=== PATIENT | male | born 1940 | race Caucasian/White ===

== ENCOUNTER → 2021-09-18 10:12 | Outpatient (REF) | payer MEDICARE, SELFPAY ==
--- NOTE | 2021-09-18 10:29 | ECG_ITS ---
Test Reason : type II dm, htn Blood Pressure : / mmHG Vent. Rate : 072 BPM Atrial Rate : 000 BPM P-R Int : 000 ms QRS Dur : 126 ms QT Int : 388 ms P-R-T Axes : 000 -43 -23 degrees QTc Int : 424 ms Atrial fibrillation with controlled ventricular rate Left axis deviation Non-specific intra-ventricular conduction block Nonspecific T wave abnormality Abnormal ECG No previous ECGs available Referred By: Radha Pierce Electronically Signed By:SKYLER KHANNA
== END ==
LOC: HO.CARD 10:12
PROVIDERS: PCP Family Medicine; Visit Provider Family Medicine
DX: E11.9 Type 2 diabetes mellitus without complications (principal); I10 Essential (primary) hypertension
CPT/HCPCS: 93005

== ENCOUNTER 2025-06-11 16:10 | Emergency (ER) | payer MEDICARE, SELFPAY ==
--- OUTSIDE RECORDS SUMMARY | 2025-06-05 20:00 | XMS_ITS | Clinical Summary ---
Author Organization Unknown Care Team Providers Care Environmental Health And Safety Leader Name Role Phone ILENE ALFREDO MD, JOSE Unavailable U mikey FOX RN, SUYAPA Unavailable Unavailable MABEL CRUZ LPN, BERE Unavailable Sofie LOMBARDI RN, KIRK Unavailable Unavailable Payers Payer Name Policy Type Policy Number Effective Date Expira tion Date [facility] [employer] - NON-BUNDLED AUTH [id number] Problems Condition Name Condition Details Condition Category Status Onset Date Resolution Date Last Treatment Date Treating Clinician Comments HYP HRT AND CHR KDNY DIS W HRT FAIL AND STG 1-4/UNSP CHR KDNY Active 09-27 00:00: 00 UNSPECIFIED SYSTOLIC (CONGESTIVE) HEART FAILURE Active 09-27 00:00: 00 TYPE 2 DIABETES MELLITUS W DIABETIC CHRONIC KIDNEY DISEASE Active 09-27 00:00: 00 CHRONIC KIDNEY DISEASE, STAGE 4 (SEVERE) Active 09-27 00:00: 00 PAROXYSMAL ATRIAL FIBRILLATION Active 09-27 00:00: 00 TYPE 2 DIABETES MELLITUS WITH DIABETIC NEUROPATHY, UNSP Active 09-27 00:00: 00 FDC (CURRENT) USE OF INSULIN Active 09-27 00:00: 00 ATHSCL HEART DISEASE OF [place] CORONARY ARTERY W/O ANG PCTRS Active 09-27 00:00: 00 OLD MYOCARDIAL INFARCTION Active 09-27 00:00: 00 PURE HYPERCHOLEST EROLEMIA, UNSPECIFIED Active 09-27 00:00: 00 BENIGN PROSTATIC HYPERPLASIA WITH LOWER URINARY TRACT SYMP Active 09-27 00:00: 00 OTHER RETENTION OF URINE Active 09-27 00:00: 00 OBESITY, UNSPECIFIED Active 09-27 00:00: 00 BODY MASS INDEX [BMI] 24.0-24.9, ADULT Active 09-27 00:00: 00 PRESENCE OF CORONARY ANGIOPLASTY IMPLANT AND GRAFT Active 09-27 00:00: 00 PERSONAL HISTORY OF NICOTINE DEPENDENCE Active 09-27 00:00: 00 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 Ordering Clinician Indication Dosage Frequency Signature (SIG) Comments Components amlodipine 5 mg tablet 06-12 00:00: 00 Yes [id number] 1 tablet DAILY 1 tablet DAILY (route: oral) Med Classific ation: Cardiovas cular Therapy Agents atorvastati n 40 mg tablet 06-12 00:00: 00 Yes [id number] 1 tablet BEDTIME 1 tablet BEDTIME (route: oral) Med Classific ation: Cardiovas cular Therapy Agents Eliquis 2.5 mg tablet 06-12 00:00: 00 Yes [id number] 1 tablet 2 TIMES DAILY 1 tablet 2 TIMES DAILY (route: oral) Med Classific ation: Hematolog ical Agents Lantus Solostar U-100 Insulin 100 unit/mL (3 mL) subcutaneou s pen 06-12 00:00: 00 Yes [id number] 28 unit BEDTIME 28 unit BEDTIME (route: subcutaneo us) Med Classific ation: Endocrine Macrobid 100 mg capsule 06-06 00:00: 00 06-13 23:59 :00 No [id number] 1 capsule 2 TIMES DAILY 1 capsule 2 TIMES DAILY (route: oral) Med Classific ation: Genitouri nary Therapy metoprolol succinate ER 100 mg tablet,exte nded release 24 hr 06-12 00:00: 00 Yes [id number] 100 mg DAILY 100 mg DAILY (route: oral) Med Classific ation: Cardiovas cular Therapy Agents Plavix 75 mg tablet 16 00:00: 00 Yes [id number] 1 tablet DAILY 1 tablet DAILY (route: oral) Med Classific ation: Hematolog ical Agents tamsulosin 0.4 mg capsule 16 00:00: 00 Yes [id number] 1 capsule BEDTIME 1 capsule BEDTIME (route: oral) Med Classific ation: Genitouri nary Therapy losartan 50 mg tablet 12-09 00:00: 00 Yes [id number] 1 tablet DAILY 1 tablet DAILY (route: oral) Med Classific ation: Cardiovas cular Therapy Agents Immunizations Ordered Immunization Name Filled Immunization Name Date Status Comments Refusal Reason INFLUENZA, TIV (INACTIVATED) 2023-06-24 00:00:00 Vital Signs Vital Name Observation Time Observation Value Commen ts Temperature 2025-06-05 08:26:00.000 98 [degF] Temperature 2025-05-22 12:21:00.000 97 [degF] Temperature 2025-04-24 12:16:00.000 97.8 [degF] Temperature 2025-04-10 19:12:00.000 97 [degF] Pulse 2025-06-05 08:26:00.000 70 /min Pulse 2025-05-22 12:21:00.000 74 /min Pulse 2025-04-24 12:16:00.000 66 /min Pulse 2025-04-10 19:12:00.000 70 /min O2 Saturation (%) 2025-06-05 08:26:00.000 97 % O2 Saturation (%) 2025-05-22 12:21:00.000 97 % O2 Saturation (%) 2025-04-24 12:16:00.000 98 % O2 Saturation (%) 2025-04-10 19:12:00.000 97 % Respirations 2025-06-05 08:26:00.000 18 /min Respirations 2025-05-22 12:21:00.000 18 /min Respirations 2025-04-10 19:12:00.000 18 /min Weight (lbs) 2025-06-05 08:26:00.000 184 [lb_av] Weight (lbs) 2025-05-22 12:21:00.000 184 [lb_av] Weight (lbs) 2025-04-24 12:16:00.000 183 [lb_av] Weight (lbs) 2025-04-10 19:12:00.000 186 [lb_av] Systolic Blood Pressure 2025-06-05 08:26:00.000 122 mm [Hg] Systolic Blood Pressure 2025-05-22 12:21:00.000 130 mm [Hg] Systolic Blood Pressure 2025-04-24 12:16:00.000 126 mm [Hg] Systolic Blood Pressure 2025-04-10 19:12:00.000 128 mm [Hg] Diastolic Blood Pressure 2025-06-05 08:26:00.000 98 mm [Hg] Diastolic Blood Pressure 2025-05-22 12:21:00.000 72 mm [Hg] Diastolic Blood Pressure 2025-04-24 12:16:00.000 72 mm [Hg] Diastolic Blood Pressure 2025-04-10 19:12:00.000 74 mm [Hg] Plan of Treatment Planned Activity Planned Date Details Comments Future Scheduled Test SKILLED NU RSE TO EVALUATE PATIENT, IDENTIFY PRIMARY AND CO-MORBID CONDITIONS CODED PER CODING GUIDELINES, AND DEVELOP PATIENT SPECIFIC PLAN OF CARE THAT INCLUDES PATIENT GOAL FOR HOME HEALTH. [code = SKILLED NURSE TO EVALUATE PATIENT, IDENTIFY PRIMARY AND CO-MORBID CONDITIONS CODED PER CODING GUIDELINES, AND DEVELOP PATIENT SPECIFIC PLAN OF CARE THAT INCLUDES PATIENT GOAL FOR HOME HEALTH.] Future Scheduled Test SKILLED NU RSE FOR O/A, TEACHING AND SELF-MANAGEMENT RELATED TO HEART FAILURE. INSTRUCT PATIENT/CAREGIVER ON SIGNS AND SYMPTOMS OF EXACERBATION TO REPORT AND IMPORTANCE OF OBTAINING AND RECORDING DAILY WEIGHT AND/OR MEASUREMENTS. SN OR TRAINED PATIENT/CAREGIVER TO OBTAIN WEIGHT DAILY AND WEIGHT GAIN OF 2 LBS OVERNIGHT OR 5 LBS IN 1 WEEK TO BE REPORTED TO PHYSICIAN/PROVIDER. IF UNABLE TO WEIGH PATIENT, SN OR TRAINED PATIENT/CAREGIVER TO OBTAIN MEASUREMENT OF THIGH IN CM DAILY AND REPORT AN INCREASE OF 2 CM TO PHYSICIAN/PROVIDER. [code = SKILLED NURSE FOR O/A, TEACHING AND SELF-MANAGEMENT RELATED TO HEART FAILURE. INSTRUCT PATIENT/CAREGIVER ON SIGNS AND SYMPTOMS OF EXACERBATION TO REPORT AND IMPORTANCE OF OBTAINING AND RECORDING DAILY WEIGHT AND/OR MEASUREMENTS. SN OR TRAINED PATIENT/CAREGIVER TO OBTAIN WEIGHT DAILY AND WEIGHT GAIN OF 2 LBS OVERNIGHT OR 5 LBS IN 1 WEEK TO BE REPORTED TO PHYSICIAN/PROVIDER. IF UNABLE TO WEIGH PATIENT, SN OR TRAINED PATIENT/CAREGIVER TO OBTAIN MEASUREMENT OF THIGH IN CM DAILY AND REPORT AN INCREASE OF 2 CM TO PHYSICIAN/PROVIDER.] Future Scheduled Test SKILLED NU RSE FOR O/A AND TEACHING OF DIABETIC MANAGEMENT INCLUDING BLOOD SUGAR MONITORING/USE OF GLUCOMETER, DIABETIC DIET, LOWER EXTREMITY SKIN INSPECTION, PROPER SKIN/FOOT CARE, AND SIGNS AND SYMPTOMS HYPO/HYPERGLYCEMIA TO REPORT. [code = SKILLED NURSE FOR O/A AND TEACHING OF DIABETIC MANAGEMENT INCLUDING BLOOD SUGAR MONITORING/USE OF GLUCOMETER, DIABETIC DIET, LOWER EXTREMITY SKIN INSPECTION, PROPER SKIN/FOOT CARE, AND SIGNS AND SYMPTOMS HYPO/HYPERGLYCEMIA TO REPORT.] Future Scheduled Test SKILLED NU RSE TO OBTAIN BLOOD SUGAR PRN FOR SIGNS AND SYMPTOMS OF HYPO/HYPERGLYCEMIA. IF OBTAINED BY PATIENT/CAREGIVER PRIOR TO VISIT AND PATIENT IS NOT SYMPTOMATIC, SKILLED NURSE TO RECORD READING FROM PATIENT LOG. [code = SKILLED NURSE TO OBTAIN BLOOD SUGAR PRN FOR SIGNS AND SYMPTOMS OF HYPO/HYPERGLYCEMIA. IF OBTAINED BY PATIENT/CAREGIVER PRIOR TO VISIT AND PATIENT IS NOT SYMPTOMATIC, SKILLED NURSE TO RECORD READING FROM PATIENT LOG.] Future Scheduled Test SKILLED NU RSE TO REVIEW PATIENT MEDICATIONS (PRESCRIPTION/OTC). INSTRUCT PATIENT/CAREGIVER ON ALL MEDICATIONS INCLUDING PURPOSE, WHEN TO TAKE, IMPORTANCE OF MEDICATION ADHERENCE, MONITORING OF EFFECTIVENESS, ADVERSE DRUG REACTIONS, POSSIBLE SIDE EFFECTS, AND WHEN TO NOTIFY AGENCY OR PHYSICIAN/PROVIDER OF ANY CONCERNS. [code = SKILLED NURSE TO REVIEW PATIENT MEDICATIONS (PRESCRIPTION/OTC). INSTRUCT PATIENT/CAREGIVER ON ALL MEDICATIONS INCLUDING PURPOSE, WHEN TO TAKE, IMPORTANCE OF MEDICATION ADHERENCE, MONITORING OF EFFECTIVENESS, ADVERSE DRUG REACTIONS, POSSIBLE SIDE EFFECTS, AND WHEN TO NOTIFY AGENCY OR PHYSICIAN/PROVIDER OF ANY CONCERNS.] Future Scheduled Test PATIENT VYAS S A RISK OF HOSPITALIZATION AND ED USE. SKILLED NURSE TO ESTABLISH SUPPORT MEASURES TO MINIMIZE RISK OF HOSPITALIZATION AND ED USE, AND INSTRUCT PATIENT/CAREGIVER ON METHODS TO REDUCE AVOIDABLE HOSPITALIZATION AND ED USE. [code = PATIENT HAS A RISK OF HOSPITALIZATION AND ED USE. SKILLED NURSE TO ESTABLISH SUPPORT MEASURES TO MINIMIZE RISK OF HOSPITALIZATION AND ED USE, AND INSTRUCT PATIENT/CAREGIVER ON METHODS TO REDUCE AVOIDABLE HOSPITALIZATION AND ED USE.] Future Scheduled Test SKILLED NU RSE TO PROVIDE INSTRUCTION TO PATIENT/CAREGIVER RELATED TO DISCHARGE PLANNING. [code = SKILLED NURSE TO PROVIDE INSTRUCTION TO PATIENT/CAREGIVER RELATED TO DISCHARGE PLANNING.] Future Scheduled Test SKILLED NU RSE TO PERFORM ENVIRONMENTAL SAFETY RISK ASSESSMENT AND FALL RISK ASSESSMENT AND PROVIDE INSTRUCTION TO IMPLEMENT ENVIRONMENTAL SAFETY AND FALL PREVENTION STRATEGIES THROUGHOUT THE CERTIFICATION PERIOD. SKILLED NURSE WILL MAINTAIN SITUATIONAL AWARENESS AND WILL NOTIFY CLINICAL VIDEO GAME PRODUCER AND PHYSICIAN/PROVIDER WITH ANY CHANGE IN CONDITION. [code = SKILLED NURSE TO PERFORM ENVIRONMENTAL SAFETY RISK ASSESSMENT AND FALL RISK ASSESSMENT AND PROVIDE INSTRUCTION TO IMPLEMENT ENVIRONMENTAL SAFETY AND FALL PREVENTION STRATEGIES THROUGHOUT THE CERTIFICATION PERIOD. SKILLED NURSE WILL MAINTAIN SITUATIONAL AWARENESS AND WILL NOTIFY CLINICAL VIDEO GAME PRODUCER AND PHYSICIAN/PROVIDER WITH ANY CHANGE IN CONDITION.] Future Scheduled Test SKILLED NU RSE FOR OBSERVATION AND ASSESSMENT OF PATIENT S PAIN LEVEL AND EFFECTIVENESS OF PAIN MANAGEMENT REGIMEN. SKILLED NURSE TO INSTRUCT PATIENT/CAREGIVER REGARDING PHARMACOLOGIC AND NON-PHARMACOLOGIC PAIN CONTROL MEASURES. SKILLED NURSE TO REPORT TO PHYSICIAN IF PAIN LEVEL IS OUTSIDE OF ESTABLISHED PARAMETERS. [code = SKILLED NURSE FOR OBSERVATION AND ASSESSMENT OF PATIENT S PAIN LEVEL AND EFFECTIVENESS OF PAIN MANAGEMENT REGIMEN. SKILLED NURSE TO INSTRUCT PATIENT/CAREGIVER REGARDING PHARMACOLOGIC AND NON-PHARMACOLOGIC PAIN CONTROL MEASURES. SKILLED NURSE TO REPORT TO PHYSICIAN IF PAIN LEVEL IS OUTSIDE OF ESTABLISHED PARAMETERS.] Future Scheduled Test SKILLED NU RSE TO ASSESS PATIENT'S SKIN INTEGRITY AND INSTRUCT PATIENT/CAREGIVER ON MEASURES TO PREVENT PRESSURE ULCERS. [code = SKILLED NURSE TO ASSESS PATIENT'S SKIN INTEGRITY AND INSTRUCT PATIENT/CAREGIVER ON MEASURES TO PREVENT PRESSURE ULCERS.] Future Scheduled Test SKILLED NU RSE FOR INSTRUCTION/ REINFORCEMENT OF NEEDS RELATED TO NUTRITION/HYDRATION. [code = SKILLED NURSE FOR INSTRUCTION/ REINFORCEMENT OF NEEDS RELATED TO NUTRITION/HYDRATION.] Future Scheduled Test SKILLED NU RSE FOR O/A AND SKILLED TEACHING RELATED TO SIGNS AND SYMPTOMS OF INFECTION AND INFECTION CONTROL MEASURES. [code = SKILLED NURSE FOR O/A AND SKILLED TEACHING RELATED TO SIGNS AND SYMPTOMS OF INFECTION AND INFECTION CONTROL MEASURES.] Future Scheduled Test SKILLED NU RSE FOR O/A OF SELF-CARE DEFICITS AND TO PROVIDE TEACHING RELATED TO SAFE PROVISION OF ADLS. [code = SKILLED NURSE FOR O/A OF SELF-CARE DEFICITS AND TO PROVIDE TEACHING RELATED TO SAFE PROVISION OF ADLS.] Future Scheduled Test SKILLED NU RSE TO INSTRUCT PATIENT/CAREGIVER AND PERFORM CARE AND MANAGEMENT OF INDWELLING URINARY CATHETER. 16FR CATHETER WITH 10ML BALLOON VIA STERILE TECHNIQUE, CHANGE Q 4WKS AND PRN FOR LEAKING OR MALFUNCTIONING CATHETER. IRRIGATE URINARY CATHETER WITH 30-60CC NORMAL SALINE PRN BLOCKAGE/LEAKAGE, HEAVY SEDIMENT. 1 - 3 PRN PENITENTIARY VISITS FOR CATHETER CHANGE(S) AND/OR TROUBLESHOOTING. [code = SKILLED NURSE TO INSTRUCT PATIENT/CAREGIVER AND PERFORM CARE AND MANAGEMENT OF INDWELLING URINARY CATHETER. 16FR CATHETER WITH 10ML BALLOON VIA STERILE TECHNIQUE, CHANGE Q 4WKS AND PRN FOR LEAKING OR MALFUNCTIONING CATHETER. IRRIGATE URINARY CATHETER WITH 30-60CC NORMAL SALINE PRN BLOCKAGE/LEAKAGE, HEAVY SEDIMENT. 1 - 3 PRN PENITENTIARY VISITS FOR CATHETER CHANGE(S) AND/OR TROUBLESHOOTING.] Future Scheduled Test SKILLED NU RSE TO PROVIDE TEACHING ON SIGNS AND SYMPTOMS AND MANAGEMENT OF HYPERTENSION. [code = SKILLED NURSE TO PROVIDE TEACHING ON SIGNS AND SYMPTOMS AND MANAGEMENT OF HYPERTENSION.] Goal 2025-04-03 Patient Goal - TO FEEL WELL Goal 2025-06-05 Patient Goal - TO FEEL WELL Goal 2024-10-05 Patient Goal - DRIVE TO DUNK IN Goal 2024-12-04 Patient Goal - DRIVE TO DUNK IN Goal Patient Goal - TO FEEL WELL Goal 2025-02-05 Patient Goal - TO FEEL WELL Goal 2024-08-07 Patient Goal - DRIVE TO DUNK IN Goal Provider Goal - A PLAN OF CARE WILL BE ESTABLISHED THAT MEETS PATIENT'S PENITENTIARY NEEDS AND INCLUDES PATIENT GOAL FOR HOME HEALTH. Goal Provider Goal - PATIENT/CAREGIVER WILL VERBALIZE/DEMONSTRATE KNOWLEDGE AND MANAGEMENT OF HEART FAILURE DISEASE PROCESS BY END OF EPISODE. Goal Provider Goal - PATIENT/CAREGIVER WILL VERBALIZE/DEMONSTRATE KNOWLEDGE OF DIABETIC MANAGEMENT. CHANGES IN DIABETIC STATUS WILL BE IDENTIFIED AND REPORTED TO PHYSICIAN FOR PROMPT INTERVENTION THROUGHOUT THE CERTIFICATION PERIOD. Goal Provider Goal - BLOOD SUGAR READING WILL BE OBTAINED ORDERED THROUGHOUT CERTIFICATION PERIOD. Goal Provider Goal - PATIENT/CAREGIVER WILL VERBALIZE UNDERSTANDING OF EDUCATION PROVIDED ON MEDICATIONS BY THE END OF THE CERTIFICATION PERIOD. Goal Provider Goal - PATIENT WILL HAVE SUPPORT MEASURES ESTABLISHED TO PREVENT HOSPITALIZATION AND ED USE AND PATIENT/CAREGIVER WILL VERBALIZE/DEMONSTRATE METHODS TO REDUCE AVOIDABLE HOSPITALIZATION AND ED USE BY END OF EPISODE. Goal Provider Goal - PATIENT/CAREGIVER WILL VERBALIZE UNDERSTANDING OF DISCHARGE PLANNING INSTRUCTIONS BY DATE OF DISCHARGE. Goal Provider Goal - PATIENT/CAREGIVER WILL VERBALIZE/DEMONSTRATE EFFECTIVE ENVIRONMENTAL SAFETY AND FALL PREVENTION STRATEGIES, WILL REMAIN SAFE IN THE COMMUNITY, AND WILL BE FREE OF DANGER TO SELF AND OTHERS THROUGHOUT THE CERTIFICATION PERIOD. Goal Provider Goal - PATIENT/CAREGIVER WILL DEMONSTRATE UNDERSTANDING OF PHARMACOLOGIC AND NONPHARMACOLOGIC PAIN CONTROL MEASURES AND PATIENT WILL HAVE IMPROVEMENT IN PAIN INTERFERING WITH ACTIVITY EVIDENCED BY PAIN AT A LEVEL THAT IS ACCEPTABLE TO THE PATIENT AND PAIN LEVEL WITHIN ESTABLISHED PARAMETERS BY END OF CERTIFICATION PERIOD. Goal Provider Goal - PATIENT/CAREGIVER WILL VERBALIZE UNDERSTANDING OF PRESSURE ULCER PREVENTION BY END OF THE EPISODE. Goal Provider Goal - PATIENT/CAREGIVER WILL DEMONSTRATE ABILITY TO SELF MANAGE NEEDS RELATED TO NUTRITION/HYDRATION THROUGHOUT THE EPISODE. Goal Provider Goal - PATIENT/CAREGIVER WILL VERBALIZE/DEMONSTRATE UNDERSTANDING OF S/S OF INFECTION AND INFECTION CONTROL MEASURES. SIGNS AND SYMPTOMS OF INFECTION WILL BE IDENTIFIED AND PHYSICIAN NOTIFIED FOR PROMPT INTERVENTION THROUGHOUT THE CERTIFICATION PERIOD. Goal Provider Goal - PATIENT/CAREGIVER WILL VERBALIZE/DEMONSTRATE UNDERSTANDING OF SAFE PROVISION OF ADLS BY THE END OF THE CERTIFICATION PERIOD. Goal Provider Goal - PATIENT WILL VERBALIZE TOLERANCE OF CATHETER CHANGE AND KNOWLEDGE OF REQUIRED CARE TO MANAGE INDWELLING URINARY CATHETER WITHOUT COMPLICATIONS BY THE END OF THE CERTIFICATION PERIOD. Goal Provider Goal - PATIENT/CAREGIVER WILL VERBALIZE SIGNS AND SYMPTOMS OF HYPERTENSION AND WILL BE ABLE TO DEMONSTRATE ABILITY TO MANAGE EXACERBATION BY END OF THE EPISODE. Encounters Start Date/Time End Date/Time Encounter Type Admission Type Attending [facility] Care Department Encounter ID Discharge Date Discharge Status Discharge Condition Discharge Reason Percent Goals Met 2025-04-08 00:00:00 2025-06-06 00:00:00 Outpatient RECERTIFIC ATION SUYAPA FOX [facility] [id number] 17.86
[2025-06-11 16:15] VITALS: BP 212/92; PULSE 93; RESP 16; TEMP 37.3; O2SAT 96; BMI 29.5
--- NOTE | 2025-06-11 16:15 | ED_ITS ---
HPI - General Adult General Chief complaint: Urogenital-Male Stated complaint: catheter leaking Related Data Previous Rx's ?Medication ?Instructions ?Recorded cefuroxime axetil 500 mg tablet 500 mg PO Q12H #13 tab s 06/11/25 Allergies Allergy/AdvReac Type Severity Reaction Status Date / Time aspirin (From Percodan) Allergy Intermediate Hives Verified 06/11/25 20:05 oxycodone (From Percodan) Allergy Intermediate Hives Verified 06/11/25 20:05 [facility] Social History Social History Advance Directives: No Advance Directives Information Provided: Yes Physical Exam ED Vital Signs: BMI result Body Mass Index 29.5 Course Course Course Narrative: This is a rapid medical exam performed by Dima Alexandre NP: Additional HPI, ROS, PE not included below will be deferred to primary provider. Patient is an 85y/o M presenting to the ED with complaint of urine leaking from meatus around catheter since this afternoon. Catheter last changed around 3 weeks ago. Has had the catheter for a year and a half. Also reports decreased urine output in bag. Plan: UA Patient left the emergency department before myself or any of the other clinicians could review or explain physical exam findings, test results, need or lack there of for additional testing, treatment options, or a treatment plan. Medical Decision Making Lab Data Labs: Lab Results 06/11/25 Range/Units 16:30 Urine Color Yellow Urine Appearance Cloudy Urine pH 5.5 (5.0-9.0) Ur Specific [place] 1.010 (1.005-1.025) Urine Protein 30 (1+) H (Neg-Trace) mg/dL Urine Glucose (UA) Negative (Negative) mg/dL Urine Ketones Negative (Negative) mg/dL Urine Blood Small (1+) H (Negative) Urine Nitrite Negative (Negative) Ur Leukocyte Esterase Large (3+) H (Negative) Urine RBC 0-2 (0-2) /HPF Urine WBC >50 H (0-5) /HPF Urine WBC Clumps Present Ur Squamous Epith Cells 0-2 (0-2) /HPF Urine Bacteria 4+ (None Seen) Hyaline Casts 0-2 (0-2) /LPF Discharge Plan Discharge Clinical Impression: Leakage from urinary catheter Patient Disposition: Left W/O Completing Treatment Prescriptions: No Action cefuroxime axetil 500 mg tablet 500 mg PO Q12H Qty: 13 0RF Discharge Date/Time: 06/11/25 19:43
--- NOTE | 2025-06-11 16:21 | ECG_ITS ---
Test Reason : HYPRETENSIVE Blood Pressure : */* mmHG Vent. Rate : 95 BPM Atrial Rate : 95 BPM P-R Int : 214 ms QRS Dur : 126 ms QT Int : 374 ms P-R-T Axes : 56 -43 52 degrees QTcB Int : 469 ms Sinus rhythm with 1st degree A-V block with frequent , and consecutive Premature ventricular complexes and Premature atrial complexes Left axis deviation Non-specific intra-ventricular conduction block Minimal voltage criteria for LVH, may be normal variant ( Sixto product ) Abnormal ECG When compared with ECG of 18-Sep-2021 10:39, Sinus rhythm has replaced Atrial fibrillation T wave inversion no longer evident in Inferior leads Nonspecific T wave abnormality, improved in Lateral leads Referred By: Libia Alexandre Electronically Signed By: SKYLER KHANNA
[2025-06-11 16:46] LABS: Appearance Urine Cloudy; Glucose Urine UA Negative (Negative); PH 5.5 (5.0-9.0); Specific Gravity - Urine 1.010 (1.005-1.025); UMIC TRIGGER UACC YES
[2025-06-11 17:35] LABS: UACC Culture Trigger YES
--- OUTSIDE RECORDS SUMMARY | 2025-06-11 21:50 | XMS_ITS | Clinical Summary ---
Author Organization [facility] [place] [address] Care Team Providers Care Access Services Assistant Name Role Phone Unavailable Primary Care Provider Unavailabl e Social History Tobacco Use Types Packs/Day Years Used Date Smoking Tobacco: Never Assessed Sex and Gender Information Value Date Recorded Sex Assigned at Not on file Legal Sex Male 11:41 AM EDT Gender Identity Not on file Sexual Orientation Not on file Plan of Treatment Health Maintenance Due Date Last Done Comments DTaP,Tdap,and Td Vaccines (1 - Tdap) 1959 Pneumococcal Vaccine: 50+ Ye ars (1 of 1 - PCV) 01/17/1988 Zoster Vaccines (1 of 2) 01/17/1988 RSV Immunization Adult Patie nts (1 - 1-dose 75+ series) 2013 Cholesterol Screening (Lipid Panel) 07/22/2024 Falls Risk Assessment 07/22/2024 Social Influencers of Health Screening 07/22/2024 Depression Screening 09/27/2024 Hypertension/CHF/CAD Annual BMP Blood Test 03/30/2025 COVID-19 Vaccine ( - 2023-2 5 season) 2025 Influenza Vaccine (#1) 2025 HIB Vaccines Aged Out No longer eligi ble based on patient's age to complete this topic HPV Vaccines Aged Out No longer eligi ble based on patient's age to complete this topic Hepatitis A Vaccines Aged Out No long er eligible based on patient's age to complete this topic Hepatitis B Vaccines Aged Out No long er eligible based on patient's age to complete this topic IPV Vaccines Aged Out No longer eligi ble based on patient's age to complete this topic MMR Vaccines Aged Out No longer eligi ble based on patient's age to complete this topic Meningococcal ACWY Vaccine Aged Out N o longer eligible based on patient's age to complete this topic Meningococcal B Vaccine Aged Out No l onger eligible based on patient's age to complete this topic RSV Immunization Patients Un clarence 20 months Aged Out No longer eligible b ased on patient's age to complete this topic Varicella Vaccines Aged Out No longer eligible based on patient's age to complete this topic
--- OUTSIDE RECORDS SUMMARY | 2025-06-11 21:50 | XMS_ITS | Clinical Summary ---
Author Organization [facility] Address [address] [place] [address] Phone Care Team Providers Care Sales Clerk Name Role Phone Michelle Lucas MD Primary Care Provider [phone] Allergies Active Allergy Reactions Criticality Noted Date Comments Oxycodone-Acetaminophen 09/08/2021 Medications apixaban (Eliquis) 2.5 MG tablet Take 2.5 mg by mouth 2 (two) times a day Active insulin glargine (LANTUS) 100 UNIT/ML injection Inject 22 Units under the skin every night Active amLODIPine (NORVASC) 5 MG tablet Take 5 mg by mouth 04/18/2024 Active famotidine (PEPCID) 10 MG tablet Take 10 mg by mouth 03/13/2024 Active clopidogrel (PLAVIX) 75 MG tablet Take 75 mg by mouth 06/06/2024 Active losartan (COZAAR) 50 MG tablet Take 1 tablet (50 mg total) by mouth 1 (one) time each day 90 tablet 3 08/01/2024 5 Active Active Problems Problem Noted Date Diagnosed Date Essential (primary) hypertension 09/08/2021 Hyperlipidemia 09/08/2021 Old myocardial infarction 09/08/2021 Hernia hydrocele complex 09/08/2021 Chronic kidney disease 09/08/2021 Obesity 09/08/2021 Benign adenoma of prostate 09/08/2021 Coronary arteriosclerosis 09/08/2021 Family History Relation Status Comments Father Mother Social History Tobacco Use Types Packs/Day Years Used Date Smoking Tobacco: Never Smokeless Tobacco: Never Alcohol Use Standard Drinks/Week Comments Never 0 (1 standard drink = 0.6 oz pur e alcohol) Sex and Gender Information Value Date Recorded Sex Assigned at Not on file Legal Sex Male 9:32 AM EST Gender Identity Not on file Sexual Orientation Not on file Last Filed Vital Signs Vital Sign Reading Time Taken Comments Blood Pressure 138/89 08/01/2024 3:56 PM EST Pulse 87 08/01/2024 3:56 PM EST Temperature - - Respiratory Rate - - Oxygen Saturation 97% 08/01/2024 3:56 PM EST Inhaled Oxygen Concentration - - Weight 82.6 kg (182 lb) 08/01/2024 3:56 PM EST Height - - Body Mass Index - - Plan of Treatment Health Maintenance Due Date Last Done Comments Pneumococcal Vaccine: 50+ Years (1 of 2 - PCV) 1959 04/16/2011 Diabetes: Hemoglobin A1C 07/28/2024 Diabetes: Ophthalmology Exam 07/28/2024 Diabetes: Pedal Pulse Checked 07/28/2024 Diabetes: Sensory Foot Exam 07/28/2024 Diabetes: Visual Foot Exam 07/28/2024 Influenza Vaccine (#1) 2025 , 09/03/2022, 07/02/2021, Additional history exists Hepatitis B Vaccine Aged Out No longe r eligible based on patient's age to complete this topic Insurance [employer] Medicare [facility] 1,2,3 (VAC[facility]) [facility] Medicare [facility] 1,2,3 (VACCN) Care Teams Sales Clerk Relationship Specialty Start Date End Date Michelle Lucas MD [address] [place] [id number] PCP - General Internal Medicine 08/01/24
--- OUTSIDE RECORDS SUMMARY | 2025-06-11 21:50 | XMS_ITS ---
Author Name [facility] Organization Unknown Care Team Organization Name Specialty Phone Email Start Date End [facility]
== END 2025-06-11 19:43 | disposition left against medical advice (07) ==
LOC: HO.ED 19:42
PROVIDERS: Registered Nurse Emergency; Emergency Provider Emergency Medicine
DX: T83.038A Leakage of other urinary catheter, initial encounter (principal); Y73.8 Miscellaneous gastroenterology and urology devices associated with adverse incidents, not elsewhere classified; Y92.9 Unspecified place or not applicable; R94.31 Abnormal electrocardiogram [ECG] [EKG]; Z79.899 Other long term (current) drug therapy
CPT/HCPCS: 81001; 81003; 87086; 87088; 93005; 99283

== ENCOUNTER → 2025-06-11 16:21 | Outpatient (BNV) | payer MEDICARE, SELFPAY | PROVIDERS: Emergency Provider Emergency Medicine; Visit Provider Internal Medicine | DX: I44.0 Atrioventricular block, first degree (principal); I49.1 Atrial premature depolarization; I49.3 Ventricular premature depolarization; I45.4 Nonspecific intraventricular block | CPT/HCPCS: 93010 ==

== ENCOUNTER 2025-06-11 19:47 | Emergency (ER) | payer MEDICARE, SELFPAY ==
[2025-06-11 19:59] VITALS: BP 227/109; PULSE 97; O2SAT 95; BMI 29.9
[2025-06-11 20:20] VITALS: BP 211/95; PULSE 95; RESP 20; TEMP 36.8; O2SAT 97
[2025-06-11 21:07] LABS: MANUAL DIFF FLAG NO
[2025-06-11 21:09] LABS: Appearance Urine Cloudy; Glucose Urine UA Negative (Negative); PH 5.5 (5.0-9.0); Specific Gravity - Urine 1.010 (1.005-1.025); UMIC TRIGGER UACC YES
[2025-06-11 21:09] LABS: Hematocrit 32.6 % (42.0-52.0); Hemoglobin 11.3 g/dl (14.0-18.0); Imm Gran Abs Auto 0.03 X10*3/uL (0.00-0.03); Imm Gran Pct Auto 0.3 % (0.0-0.4); Lymphocytes Absolute Auto 0.9 X10*3/uL (1.2-4.9); Mean Corpuscular HGB Conc 34.7 g/dl (31.0-36.0); Mean Corpuscular Hemoglobin 28.2 pg (27.0-33.0); Mean Corpuscular Volume 81.3 fL (80.0-98.0); NRBC Abs Auto 0.000 X10*3/uL (0.0-0.012); NRBC Pct Auto 0.0 /100WBC (0.0-0.2); Platelet Count 208 X10*3/uL (160-400); Red Blood Count 4.01 X10*6/uL (4.60-5.80); White Blood Count 9.0 X10*3/uL (4.8-10.8)
[2025-06-11 21:22] LABS: Alanine Aminotransferase 13 U/L (0-40); Albumin Level 4.6 g/dL (3.5-5.0); Alkaline Phosphatase 75 U/L (39-117); Anion Gap 16 (12-20); Aspartate Amino Transferase 16 U/L (5-37); Blood Urea Nitrogen 42 mg/dL (9-16); Calcium 9.5 mg/dL (8.4-10.2); Carbon Dioxide 22 mmol/L (22-29); Chloride 106 mmol/L (96-108); Creatinine Clr Calc Pharmacy 13.7; Estimated Glomerular Filt Rate 15; Potassium 3.9 mmol/L (3.3-5.1); Sodium 140 mmol/L (135-145); Total Protein 7.2 g/dL (6.5-8.0)
[2025-06-11 21:30] LABS: UACC Culture Trigger YES
--- NOTE | 2025-06-11 22:09 | PC.NURSE ---
PT TIFFANI from EMS. PT was in waiting room earlier today for 3 hours and lwbs. Complains of abdominal distention and urine leaking. Bladder scan completed >812mls registered PT richards leg bag noted to be tied tightly and somewhat tangled. upon release, output of 1100mls. another 1100mls of output an hour later. urine cloudy.
--- NOTE | 2025-06-11 22:20 | ED_ITS ---
HPI - Male Genitourinary General Chief complaint: Urogenital-Male Stated complaint: abd pain,decreased urine output in richards Time Seen by Provider: 06/11/25 22:05 Source: patient, family, RN notes reviewed and old records reviewed Mode of arrival: EMS Limitations: no limitations History of Present Illness ED Provider: Dion THOMAS Narrative: 85-year-old male past medical history significant for chronic kidney disease, chronic Richards catheter presents for evaluation of lower abdominal pain and leaking from his catheter. Patient presents with his family. Apparently he had some leaking in his catheter yesterday but developed lower abdominal discomfort this morning He reports that his catheter has not been draining appropriately. On arrival to the ED, the patient was quite uncomfortable with lower abdominal pain and the urge to urinate. Per nursing staff the catheter was twisted in kinked around his leg. Prior to my evaluation this was untwisted and the patient had immediate drainage of 1100 cc of clear urine and within 20 minutes had another 1100 cc for a total of 2200 cc of urine drained The patient's pain has improved He denies any fevers or chills. He follows with the [facility] for his treatment Related Data Previous Rx's ?Medication ?Instructions ?Recorded cefuroxime axetil 500 mg tablet 500 mg PO Q12H #13 tab s 06/11/25 Allergies Allergy/AdvReac Type Severity Reaction Status Date / Time aspirin (From Percodan) Allergy Intermediate Hives Verified 06/11/25 20:05 oxycodone (From Percodan) Allergy Intermediate Hives Verified 06/11/25 20:05 Review of Systems 2 Constitutional: Constitutional: Denies anorexia, Denies body ache(s), Denies chills and Denies fatigue Eyes: Eyes: Denies blurry vision ENT: Denies dizziness Cardiovascular: Cardiovascular: Denies chest pain and Denies dyspnea on exertion Respiratory: Respiratory: Denies cough and Denies dyspnea on exertion Gastrointestinal: Gastrointestinal: Reports abdominal pain, Denies nausea and Denies vomiting Genitourinary: Genitourinary: Reports difficulty urinating Musculoskeletal: Musculoskeletal: Denies back pain Integumentary/Breasts: Skin/Breast: Denies rash Neurologic: Denies dizziness Endocrine: Endocrine: Denies fatigue PMF Social History Social History Advance Directives: No Advance Directives Information Provided: Yes Physical Exam 2 Vital Signs: Vital Signs: Last Vital Signs Temp 98.1 F 06/11/25 22:32 Pulse 85 06/11/25 22:32 Resp 20 06/11/25 22:32 BP 185/78 H 06/11/25 22:32 Pulse Ox 97 06/11/25 22:32 O2 Del Method Room Air 06/11/25 22:32 BMI result Body Mass Index 29.9 Const: General: healthy appearing, comfortable, no acute distress, alert and awake Nutritional Appearance: well nourished Orientation/consciousness: p atient oriented x3 HEENT: Head: Yes normocephalic and Yes atraumatic Eyes: Eyelids: Yes eyelids normal Conjunctivae: conjunctivae normal S clerae: sclerae normal Corneas: corneas normal Pupils: Equal, round and reactive pupils present EOM: EOMs intact bilaterally Neck: Neck: Yes full ROM Resp: Effort & Inspection: normal respiratory effort, able to speak in complete sentences and not labored Cardio: Rate: regular rate Rhythm: regular rhythm GI: Inspection: No distended Palpation (GI): Soft to palpation, not firm, nontender, no guarding and not rigid Skin: General skin exam: elasticity normal Neuro: General: patient oriented x3 Cranial nerves: Yes Equal, round and reactive pupils present and Yes Bilaterally intact EOM present Cognition (Neuro): normal cognition Medications Administered Discontinued Medications Generic Name Dose Route Start Last Admin Trade Name Freq PRN Reason Stop Dose Admin Cefuroxime Axetil 500 mg 06/11/25 22:32 06/11/25 23:05 Cefuroxime Axetil 500 Mg Tablet PO 06/11/25 22:33 500 mg ONCE ONE Administration Medical Decision Making Medical Decision Making [facility] Narrative: 85-year-old male presenting for evaluation of lower abdominal pain and malfunctioning Richards catheter. Nursing had untwisted the catheter prior to my evaluation of the patient. Again, approximately 2200 cc of urine was drained within 30 minutes of correcting the catheter. At the time my evaluation, the patient is resting comfortably with no further discomfort. He denies any fevers, chills. He was quite hypertensive but this improved once his bladder was emptied. There was no leukocytosis but there was a left shift. The patient has a mild, normocytic anemia the patient's creatinine is 3.86 with a BUN of 42. We have no previous labs for comparison. I did check the [facility] records with [facility] is and there were no labs listed. The patient's daughter states that the patient follows with a type mapper and his creatinine is ?over 3 at baseline. ? Given that the patient's urine appears infected we will change the catheter and start the patient on cefuroxime but he will be discharged to follow up with outpatient providers Differential Diagnosis Differential Diagnoses: The differential diagnosis associated with the presentation includes Urinary retention UTI Pyelonephritis Neurogenic bladder Chronic kidney disease Admission/Observation Consideration of admission/observation: Escalation of care including admission/observation considered Lab Data MDM Lab Attestation statement: I reviewed the patient's lab results. As above 06/11/25 20:54 06/11/25 20:54 Labs: Lab Results 06/11/25 06/11/25 Range/Units 20:54 20:56 WBC 9.0 (4.8-10.8) X10*3/uL RBC 4.01 L (4.60-5.80) X10*6/uL Hgb 11.3 L (14.0-18.0) g/dl Hct 32.6 L (42.0-52.0) % MCV 81.3 (80.0-98.0) fL MCH 28.2 (27.0-33.0) pg MCHC 34.7 (31.0-36.0) g/dl RDW 14.0 (11.0-16.0) % Plt Count 208 (160-400) X10*3/uL MPV 10.0 (9.4-12.4) fL Immature Gran % (Auto) 0.3 (0.0-0.4) % Neut % (Auto) 81.6 H (45-73) % Lymph % (Auto) 9.7 L (20-40) % [place] % (Auto) 6.9 (2-11) % Eos % (Auto) 0.8 (0-4) % Baso % (Auto) 0.7 (0-2) % Lymph # (Auto) 0.9 L (1.2-4.9) X10*3/uL [place] # (Auto) 0.6 (0.1-1.2) X10*3/uL Eos # (Auto) 0.1 (0.0-0.4) X10*3/uL Baso # (Auto) 0.1 (0.0-0.2) X10*3/uL Abs Immat Gran (auto) 0.03 (0.00-0.03) X10*3/uL Absolute Neuts (auto) 7.3 (2.0-8.3) x10*3/uL Absolute Nucleated RBC 0.000 (0.0-0.012) X10*3/uL Nucleated RBC % (auto) 0.0 (0.0-0.2) /100WBC Sodium 140 (135-145) mmol/L Potassium 3.9 (3.3-5.1) mmol/L Chloride 106 (96-108) mmol/L Carbon Dioxide 22 (22-29) mmol/L Anion Gap 16 (12-20) BUN 42 H (9-16) mg/dL Creatinine 3.86 H (0.5-1.4) mg/dL Estim Creat Clear Calc 13.7 Estimated GFR 15 Random Glucose 199 H (60-115) mg/dL Calcium 9.5 (8.4-10.2) mg/dL Total Bilirubin 0.5 (0.0-1.0) mg/dL AST 16 (5-37) U/L ALT 13 (0-40) U/L Alkaline Phosphatase 75 (39-117) U/L Total Protein 7.2 (6.5-8.0) g/dL Albumin 4.6 (3.5-5.0) g/dL Urine Color Yellow Urine Appearance Cloudy Urine pH 5.5 (5.0-9.0) Ur Specific [place] 1.010 (1.005-1.025) Urine Protein 100 (2+) H (Neg-Trace) mg/dL Urine Glucose (UA) Negative (Negative) mg/dL Urine Ketones Negative (Negative) mg/dL Urine Blood Small (1+) H (Negative) Urine Nitrite Negative (Negative) Ur Leukocyte Esterase Moderate (2+) H (Negative) Urine RBC 3-5 H (0-2) /HPF Urine WBC >50 H (0-5) /HPF Ur Squamous Epith Cells 0-2 (0-2) /HPF Urine Bacteria 4+ (None Seen) Hyaline Casts 0-2 (0-2) /LPF Discharge Plan Discharge Clinical Impression: Urinary tract infection, Acute retention of urine Patient Disposition: Home, Self-Care Instructions: Richards Catheter Placement and Care (ED), Urinary Tract Infection in Older Adults (ED) Additional Instructions: Your catheter seemed to not be draining because it was twisted and kinked. It does appear that you have a UTI as well. A new catheter was inserted. Follow up with your primary doctor, return for new or worsening symptoms Prescriptions: New cefuroxime axetil 500 mg tablet 500 mg PO Q12H Qty: 13 0RF Print Language: Czech
[2025-06-11 22:32] VITALS: BP 185/78; PULSE 85; RESP 20; TEMP 36.7; O2SAT 97
[2025-06-11 23:05] VITALS: BP 144/69; PULSE 69; RESP 16; TEMP 36.6; O2SAT 95
== END 2025-06-11 23:30 | disposition home or self-care (01) ==
PROVIDERS: Emergency Provider Student in an Organized Health Care Education/Training Program
DX: N39.0 Urinary tract infection, site not specified (principal); R10.9 Unspecified abdominal pain; R33.9 Retention of urine, unspecified; Z79.899 Other long term (current) drug therapy
CPT/HCPCS: 36415; 80053; 81001; 85025; 87086; 87088; 87186; 99283